=== PATIENT | male | born 1980 | race Caucasian/White ===

== ENCOUNTER 2017-09-12 19:07 | Emergency (ER) | payer OTHER ==
[~2017-09-12] VITALS: Ht 172.7 cm; Wt 91.4 kg
[~2017-09-12 19:07] MED LIST: FLONASE16 G1 BOTH NARES; ZITHROMAX Z-PA250 MG PO; ZOCOR PO; ZYRTEC10 M2 PO
[2017-09-12] MEDS ORDERED: ULTRACET1 TABLET PO (20:49)
[2017-09-12] MEDS ORDERED: LIDODERM 5% P1 PATCH TD (20:49)
[2017-09-12 21:16] VITALS: BP 145/91
== END 2017-09-12 21:16 | disposition home or self-care (01) ==
LOC: EME 19:07
DX: M54.42 Lumbago with sciatica, left side (principal)
CPT/HCPCS: 72131; 99281; 99283; J1100